=== PATIENT | male | born 1990 | race Hispanic/Latino ===

== ENCOUNTER 2017-02-13 10:55 | Emergency (ER) | payer OTHER ==
[2017-02-13] MEDS ORDERED: Acetaminophen 325 MG TAB ONE (11:51)
[2017-02-13] MEDS ORDERED: methylPREDNISolone Sod Succ/PF 125 MG/2 ML VIAL ONE (11:51)
--- NOTE | 2017-02-13 13:42 | RAD ---
CHEST 2 VIEWS: Date: 02/13/17 HISTORY: Cough and body ache. Congestion. FINDINGS: Normal cardiac silhouette. Pulmonary vessels and hilum are normal. No mass. No consolidation. No pne umothorax or osseous abnormality. IMPRESSION: No acute cardiopulmonary process. POS: [facility]
== END 2017-02-13 13:12 | disposition home or self-care (01) ==
LOC: NAV ERS 10:55
DX: J20.9 Acute bronchitis, unspecified (principal); F41.9 Anxiety disorder, unspecified; J45.909 Unspecified asthma, uncomplicated; F17.210 Nicotine dependence, cigarettes, uncomplicated
CPT/HCPCS: 71020; 96372; J2930

== ENCOUNTER 2017-05-19 18:39 | Emergency (ER) | payer OTHER ==
[2017-05-19] MEDS ORDERED: Ciprofloxacin 500 MG TAB ONE (18:52)
[2017-05-19] MEDS ORDERED: methylPREDNISolone Sod Succ/PF 125 MG/2 ML VIAL ONE (18:52)
== END 2017-05-19 19:13 | disposition home or self-care (01) ==
LOC: NAV ERS 18:39
DX: J20.9 Acute bronchitis, unspecified (principal); J45.909 Unspecified asthma, uncomplicated; F41.9 Anxiety disorder, unspecified; F17.210 Nicotine dependence, cigarettes, uncomplicated
CPT/HCPCS: 94640; 96372; J2930; J7620

== ENCOUNTER 2020-03-26 21:37 | Emergency (ER) | payer OTHER, SELFPAY ==
[2020-03-26] MEDS ORDERED: Adacel (T-DAP) 0.5 ML SYRINGE ONE (21:57)
[2020-03-26] MEDS ORDERED: HYDROcodone/Acetaminophen 5/325 mg Tablet ONE (22:27)
[2020-03-26] MEDS ORDERED: Ondansetron ODT 4 MG TAB ONE (22:28)
[2020-03-26] MEDS ORDERED: Morphine 4 MG/ML VIAL ONE (22:28)
[2020-03-26] MEDS ORDERED: Bacitracin 1 PK ONE (22:37)
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
== END 2020-03-26 22:45 | disposition home or self-care (01) ==
LOC: NAV ERS 21:37
DX: S43.101A Unspecified dislocation of right acromioclavicular joint, initial encounter (principal); S01.511A Laceration without foreign body of lip, initial encounter; J45.909 Unspecified asthma, uncomplicated; F41.9 Anxiety disorder, unspecified; F17.210 Nicotine dependence, cigarettes, uncomplicated; V19.9XXA Pedal cyclist (driver) (passenger) injured in unspecified traffic accident, initial encounter
CPT/HCPCS: 90471; 90715; 96372; J2270; Q0162

== ENCOUNTER 2020-08-21 23:36 | Emergency (ER) | payer SELFPAY ==
[2020-08-22] MEDS ORDERED: Morphine 4 MG/ML VIAL ONE (00:19)
[2020-08-22] MEDS ORDERED: Diazepam 5 MG TAB ONE (01:14)
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
== END 2020-08-22 03:52 | disposition short-term general hospital (02) ==
LOC: NAV ER/OP 23:36 → NAV ERS 08-22 03:52
DX: S63.035A Dislocation of midcarpal joint of left wrist, initial encounter (principal); S05.41XA Penetrating wound of orbit with or without foreign body, right eye, initial encounter; S40.211A Abrasion of right shoulder, initial encounter; S60.512A Abrasion of left hand, initial encounter; J45.909 Unspecified asthma, uncomplicated; F41.9 Anxiety disorder, unspecified; F90.9 Attention-deficit hyperactivity disorder, unspecified type; F17.210 Nicotine dependence, cigarettes, uncomplicated; V29.9XXA Motorcycle rider (driver) (passenger) injured in unspecified traffic accident, initial encounter
CPT/HCPCS: 70450; J2270